=== PATIENT | male | born 1950 | race Caucasian/White ===

== ENCOUNTER → 2021-11-14 | Outpatient (CLI) | payer SELFPAY, MEDICARE ==
--- NOTE | 2021-11-14 17:54 | MRI_ITS ---
EXAM: MR LUMBAR SPINE WITHOUT INTRAVENOUS CONTRAST CLINICAL INDICATION: BACK PAIN TECHNIQUE: Multiplanar and multisequence MR images of the lumbar spine without intravenous contrast. Magnetic field strength 1.5 T. This report was created using [employer] report [employer] technology. COMPARISON: None. FINDINGS: VERTEBRAE: Unremarkable. Vertebral body heights are preserved. Normal vertebral bodies and posterior elements. Normal alignment. No spondylolisthesis. There is preservation of the normal lumbar lordosis. SPINAL CORD: Unremarkable. Normal position and signal intensity of the conus medullaris. SOFT TISSUES: Unremarkable. DISCS/SPINAL CANAL/NEURAL FORAMINA: L1-L2: Loss of disc signal and mild loss of disc height. Slight generalized bulge. No spinal canal or foraminal stenosis. L2-L3: Loss of disc signal and slight generalized bulge. No spinal canal or foraminal stenosis. L3-L4: Mild loss of disc height and signal. Mild generalized disc bulge. Canal is narrowed to 11 mm. No nerve root impingement. Mild bilateral facet arthropathy. L4-L5: Loss of disc signal and slight generalized bulge. No spinal canal or foraminal stenosis. Mild bilateral facet arthropathy. L5-S1: Loss of disc signal. Mild generalized disc bulge and slight right paracentral disc protrusion. No spinal canal or foraminal stenosis. No nerve root impingement. Mild bilateral facet arthropathy. MRI/Spine Lumbar (Routine) IMPRESSION: Diffuse mild to moderate degenerative changes without spinal canal or foraminal stenosis. No nerve root impingement. Electronically Signed: Trung Cormier MD at 18:46 EDT ,
== END | disposition home or self-care (01) ==
DX: M99.03 Segmental and somatic dysfunction of lumbar region (principal); M54.51 Vertebrogenic low back pain
CPT/HCPCS: 72148